=== PATIENT | male | born 1970 | race Caucasian/White ===

== ENCOUNTER 2016-05-18 23:12 | Emergency (ER) | payer BC, OTHER ==
[~2016-05-18] VITALS: Ht 177.8 cm; Wt 100.0 kg
[~2016-05-18 23:12] MED LIST: CYCL1PAK PO; DOCU1CAP39 PO; OXYC1SOL5 PO; OXYC1TAB63 PO; ULTR50TA PO; Z.0.NO CURRENT MEDS
[2016-05-18] MEDS ORDERED: ROBA500T PO (23:29)
[2016-05-18] MEDS ORDERED: TRAM50TA PO (23:29)
[2016-05-18 23:31] VITALS: BP 120/73; PULSE 105; RESP 18; TEMP 98.4; O2SAT 96
[2016-05-18 23:53] LABS: BASOPHIL # 0.1 TH/MM3 (0-0.2); BASOPHIL % 0.9 % (0.0-2.0); EOSINOPHIL # 0.5 TH/MM3 (0-0.4); EOSINOPHIL % 6.6 % (0.0-4.0); HEMATOCRIT 37.4 % (39.0-51.0); HEMO FLAGS DIFF FINAL; LYMPH % 30.1 % (9.0-44.0); LYMPHOCYTE # 2.3 TH/MM3 (1.0-4.8); MEAN CELL VOLUME 93.3 FL (80.0-100.0); MEAN CORPUSCULAR HEMOGLOBIN 32.2 PG (27.0-34.0); MEAN CORPUSCULAR HGB CONC 34.6 % (32.0-36.0); MONO % 9.2 % (0.0-8.0); NEUT % 53.2 % (16.0-70.0); PLATELET COUNT 349 TH/MM3 (150-450); RED BLOOD COUNT 4.01 MIL/MM3 (4.50-5.90); RED CELL DISTRIBUTION WIDTH 12.4 % (11.6-17.2); WHITE BLOOD COUNT 7.6 TH/MM3 (4.0-11.0)
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
[2016-05-19 00:13] LABS: ANION GAP 10 MEQ/L (5-15); AST (GOT) 17 U/L (15-37); BICARBONATE 26.4 MEQ/L (21.0-32.0); BLOOD UREA NITROGEN 20 MG/DL (7-18); CHLORIDE 105 MEQ/L (98-107); GLOMERULAR FILTRATION RATE 94 ML/MIN (>89); POTASSIUM 3.5 MEQ/L (3.5-5.1); SODIUM (NA) 141 MEQ/L (136-145)
[2016-05-19 00:18] LABS: ALKALINE PHOSPHATASE 121 U/L (45-117); ALT (GPT) 35 U/L (12-78); TOTAL BILIRUBIN ADULT 0.3 MG/DL (0.2-1.0)
[2016-05-19] MEDS ORDERED: METHOCARBAMOL 500 MG TAB PO ONE (00:30)
[2016-05-19] MEDS ORDERED: traMADol HCL 50 MG TAB PO ONE (00:30)
[2016-05-19 02:13] LABS: AMPHETAMINE, URINE NEG (NEG); BARBITURATES, URINE NEG (NEG); COCAINE, URINE NEG (NEG)
[2016-05-19 02:27] VITALS: BP 129/70; PULSE 70; RESP 18; O2SAT 98
[2016-05-19 06:09] VITALS: BP 121/78; PULSE 70; RESP 18; O2SAT 97
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
== END 2016-05-19 09:23 | disposition home or self-care (01) ==
LOC: MERGE 23:12 → NEPA 23:12 → NEPJ 05-19 09:23
DX: F43.22 Adjustment disorder with anxiety (principal); F12.90 Cannabis use, unspecified, uncomplicated
CPT/HCPCS: 80053; 80307; 80320; 85025; 99284

== ENCOUNTER 2016-08-25 10:46 | Emergency (ER) | payer BC, OTHER ==
[~2016-08-25] VITALS: Ht 177.8 cm; Wt 80.0 kg
[~2016-08-25 10:46] MED LIST changes: -DOCU1CAP39 PO; -OXYC1TAB63 PO; +ROBA500T PO; +TRAM50TA PO
[2016-08-25 10:47] VITALS: BP 180/113; PULSE 102; RESP 20; TEMP 97.8; O2SAT 100
[2016-08-25] MEDS ORDERED: IBUP400T20 PO (10:53)
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
[2016-08-25] MEDS ORDERED: TETANUS/DIPHTHERIA TOXOID ADULT 0.5 ML VIAL IM ONE (11:45)
--- NOTE | 2016-08-25 12:13 | RADRPT ---
EXAM DATE/TIME: 08/25/2016 11:43 [facility] COMPARISON: No previous studies available for comparison. INDICATIONS : Right knee pain, fall. MEDICAL HISTORY : None. SURGICAL HISTORY : None. ENCOUNTER: Initial ACUITY: 1 day PAIN SCORE: 5/10 LOCATION: Right anterior knee FINDINGS: No definite fractures, or dislocations are identified. No definite lytic or sclerotic lesion is seen . The joint spaces are well maintained. moderate joint effusion is seen. CONCLUSION: Joint effusion. KRoxy Lujan MD on August 25, 2016 at 12:10 Board Certified Radiologist. This report was verified electronically.
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
--- NOTE | 2016-08-25 12:42 | RADRPT ---
EXAM DATE/TIME: 08/25/2016 11:52 [facility] COMPARISON: CHEST SINGLE AP, August 25, 2016, 11:59. 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 RADIATION DOSE: 36.25 CTDIvol (mGy) MEDICAL HISTORY : None SURGICAL HISTORY : None. ENCOUNTER: Initial ACUITY: 1 day PAIN SCALE: 0/10 LOCATION: neck TECHNIQUE: Volumetric scanning of the cervical spine was performed. Multiplanar reconstructions in the sagittal, coronal and oblique axial planes were performed. Using automated exposure control and adjustment o f the mA and/or kV according to patient size, radiation dose was kept as low as reasonably achievable to obtain optimal diagnostic quality images. FINDINGS: No evidence of subluxation. No definite fracture is seen for technique of the cervical spine, ho wever there are old fractures of the ribs on the right side the visualized. C2-C3: There is no evidence for any significant compromise to the thecal sac, or the exiting nerve roots. N o appreciable thecal sac stenosis is seen. The neural foramina and lateral recess appear patent bila terally. C3-C4: There is asymmetrical bulging disc towards the right with extension into the right neural foramen imp inging the exiting nerve root to a slight degree. Slight bulging disc and hypertrophic changes are se en with indentation on the thecal sac and no significant compromise to the thecal sac. C4-C5: Slight degenerative changes are seen within the disc space and facets. Small broad-based HNP is seen on the right indenting the thecal sac and impinging the exiting nerve roots a slight degree. There ma y be slight overall thecal sac stenosis towards the right side at this level. C5-C6: Moderate degenerative changes are seen within the disc space and facets. Slight lateral recess compro mise is seen on the left due to hypertrophic changes and bulging disc. No significant thecal sac sten osis is seen. C6-C7: Moderate degenerative changes are seen within the disc space and facets. Slight lateral recess compro mise is seen on the left due to hypertrophic changes and bulging disc. Slight overall thecal sac sten osis is also suspected due to left sided disc/osteophyte complex. C7-T1: There is no evidence for any significant compromise to the thecal sac, or the exiting nerve roots. N o appreciable thecal sac stenosis is seen. The neural foramina and lateral recess appear patent bila terally. CONCLUSION: 1. Slight broad based disc herniation C4-5 on the right disc/osteophyte complex on the left C6-7 prob ably causing mild overall thecal sac stenosis at these levels. 2. Slight lateral recess compromise left C5-C6. Alfonso Lujan MD on August 25, 2016 at 12:35 Board Certified Radiologist. This report was verified electronically.
--- NOTE | 2016-08-25 12:45 | RADRPT ---
EXAM DATE/TIME: 08/25/2016 11:59 [facility] COMPARISON: No previous studies available for comparison. INDICATIONS : Shortness of breath. MEDICAL HISTORY : None. SURGICAL HISTORY : None. ENCOUNTER: Initial ACUITY: 1 day PAIN SCORE: 0/10 LOCATION: Bilateral chest FINDINGS: The lungs are clear without infiltrate, nodule, or mass. There is no appreciable pleural effusion fo r technique. Heart and mediastinum are unremarkable. There are old healed rib fractures in the right lower chest. There is also an old fracture of the scapula on the right side. CONCLUSION: No acute cardiopulmonary disease. Alfonso Lujan MD on August 25, 2016 at 12:42 Board Certified Radiologist. This report was verified electronically.
== END 2016-08-25 13:26 ==
LOC: MERGE 10:46 → NEPC 10:46
DX: S00.01XA Abrasion of scalp, initial encounter (principal); M25.511 Pain in right shoulder; M25.532 Pain in left wrist; M25.531 Pain in right wrist; M25.561 Pain in right knee; M25.571 Pain in right ankle and joints of right foot; Y04.0XXA Assault by unarmed brawl or fight, initial encounter; Z23 Encounter for immunization
CPT/HCPCS: 70450; 71010; 72125; 73030; 73100; 73560; 90471; 90714